=== PATIENT | female | born 1960 | race Caucasian/White ===

== ENCOUNTER 2019-03-30 06:56 | Emergency (ER) | payer SELFPAY ==
[2019-03-30] MEDS ORDERED: Morphine 4 MG/ML VIAL ONE (07:49)
[2019-03-30] MEDS ORDERED: Ondansetron ODT 4 MG TAB ONE (07:50)
[2019-03-30 07:58] LABS: #Eosinphils 0.1 thou/uL (0.0-0.7); #Lymphocytes 1.4 thou/uL (1.20-3.40); #Monocytes 0.4 thou/uL (0.11-0.59); #Neutrophils 3.2 thou/uL (1.40-6.50); %Basophils 0.8 % (0.0-1.0); %Eosinophils 1.6 % (0.0-10.0); %Lymphocytes 27.8 % (21.0-51.0); %Monocytes 7.7 % (0.0-10.0); %Neutrophils 62.1 % (42.0-75.0); Hemoglobin 11.9 g/dL (12.0-16.0); Mean Corpuscular HGB CONC 35.4 g/dL (32.0-36.0); Mean Corpuscular Hemoglobin 31.6 pg (27.0-31.0); Mean Corpuscular Volume 89.3 fL (78.0-98.0); Mean Platelet Volume 6.8 fL (7.4-10.4); Platelet Count 300 thou/uL (130-400); Red Blood Cell (RBC) Count 3.77 mill/uL (4.20-5.40); White Blood Cell (WBC) Count 5.2 thou/uL (4.8-10.8)
[2019-03-30 08:19] LABS: ALT (SGPT) 10 U/L (8-55); AST (SGOT) 14 U/L (5-34); Albumin 4.7 g/dL (3.5-5.0); Alkaline Phosphatase 45 U/L (40-150); Anion Gap 14 mmol/L (10-20); BUN (Urea Nitrogen) 5 mg/dL (9.8-20.1); Bilirubin, Total 0.5 mg/dL (0.2-1.2); Calc. Creatinine Clearance 0 mL/min (70-130); Calcium 9.8 mg/dL (7.8-10.44); Carbon Dioxide 24 mmol/L (22-29); Chloride 104 mmol/L (98-107); Estimated GFR-MDRD 78; Globulin 2.3 g/dL (2.4-3.5); Glucose 109 mg/dL (70-105); Potassium 3.1 mmol/L (3.5-5.1); Sodium 139 mmol/L (136-145)
--- NOTE | 2019-03-30 08:53 | RAD ---
RIGHT KNEE FOUR VIEWS: HISTORY: Pain. FINDINGS: No joint effusion. Joint spaces are preserved. No fracture or malalignment. Well circumscribed oss ific density in the popliteal fossa may represent a loose body versus flabella. IMPRESSION: No fracture or dislocation. No joint effusion. If there is concern for internal derangement, consider MRI. POS: OFF
[2019-03-30 08:54] LABS: Bacteria/HPF None Seen HPF (None Seen); Bilirubin Negative (Negative); Blood, Urine 1+ (Negative); Clarity Clear (Clear); Glucose, Urine (Dipstick) Normal (Negative); Leukocyte Negative Leu/uL (Negative); Nitrite Negative (Negative); Protein, Urine (Dipstick) Negative (Neg-Trace); Squamous Epithelial 0-3 HPF (0-3); Urobilinogen Normal mg/dL (Less than 2); WBC/HPF 0-3 HPF (0-3)
[2019-03-30] MEDS ORDERED: Potassium Chloride 20 MEQ TAB ONE (09:44)
== END 2019-03-30 09:53 | disposition home or self-care (01) ==
LOC: ERS 06:56
DX: M25.561 Pain in right knee (principal); E87.6 Hypokalemia; R53.1 Weakness; Z87.891 Personal history of nicotine dependence; X50.9XXA Other and unspecified overexertion or strenuous movements or postures, initial encounter
CPT/HCPCS: 36415; 80053; 81003; 81015; 84443; 85025; 93005; 96361; 96374; J2270; Q0162

== ENCOUNTER 2019-03-31 16:07 | Emergency (ER) | payer SELFPAY ==
[~2019-03-31 16:07] MED LIST: ISOVUE-370 76%-LOCM 1 ML ONE
[2019-03-31 16:38] LABS: #Basophils 0.1 thou/uL (0.0-0.2); #Eosinphils 0.1 thou/uL (0.0-0.7); #Lymphocytes 1.9 thou/uL (1.20-3.40); #Monocytes 0.5 thou/uL (0.11-0.59); #Neutrophils 4.3 thou/uL (1.40-6.50); %Eosinophils 1.4 % (0.0-10.0); %Lymphocytes 27.9 % (21.0-51.0); %Monocytes 7.4 % (0.0-10.0); %Neutrophils 62.3 % (42.0-75.0); Hemoglobin 12.4 g/dL (12.0-16.0); Mean Corpuscular HGB CONC 35.6 g/dL (32.0-36.0); Mean Corpuscular Hemoglobin 31.7 pg (27.0-31.0); Mean Platelet Volume 7.1 fL (7.4-10.4); Platelet Count 306 thou/uL (130-400); RBC Distribution Width 11.1 % (11.5-14.5); Red Blood Cell (RBC) Count 3.93 mill/uL (4.20-5.40); White Blood Cell (WBC) Count 6.9 thou/uL (4.8-10.8)
[2019-03-31 17:00] LABS: ALT (SGPT) 9 U/L (8-55); AST (SGOT) 12 U/L (5-34); Alkaline Phosphatase 51 U/L (40-150); Anion Gap 15 mmol/L (10-20); BUN (Urea Nitrogen) 4 mg/dL (9.8-20.1); Bilirubin, Total 0.4 mg/dL (0.2-1.2); Calc. Creatinine Clearance 0 mL/min (70-130); Calcium 10.1 mg/dL (7.8-10.44); Carbon Dioxide 24 mmol/L (22-29); Chloride 103 mmol/L (98-107); Estimated GFR-MDRD 78; Globulin 2.3 g/dL (2.4-3.5); Glucose 111 mg/dL (70-105); Magnesium 1.8 mg/dL (1.6-2.6); Potassium 3.6 mmol/L (3.5-5.1); Protein, Total 7.3 g/dL (6.0-8.3); Sodium 138 mmol/L (136-145)
--- NOTE | 2019-03-31 18:19 | ULT ---
ULTRASOUND DOPPLER DUPLEX VENOUS RIGHT LOWER EXTREMITY: DATE: 03/31/2019 HISTORY: 58-year-old female with right lower extremity pain TECHNIQUE: Grayscale, color-flow, and spectral analysis, of major veins of right lower extremity. FINDINGS: There is demonstration of blood flow with normal compressibility, of the right common femoral, profun da femoral, greater saphenous, femoral, popliteal, and posterior tibial, veins. IMPRESSION: Negative. No deep venous thrombosis of right lower extremity.
--- NOTE | 2019-03-31 18:42 | CT ---
CT ARTERIOGRAM CHEST WITH IV CONTRAST AND 3D IMAGIN03/31/19 HISTORY: Dyspnea. Palpitations. FINDINGS: There is good contrast opacification of the pulmonary arteries and thoracic aorta with normal origin of the great vessels at the aortic arch. No pleural fluid, pneumothorax, or mediastinal adenopathy. N onspecific mediastinal lymph nodes. Lungs are hyperinflated. IMPRESSION: No CT evidence of pulmonary embolus. Emphysema. POS: BST
== END 2019-03-31 19:24 | disposition home or self-care (01) ==
LOC: ERS 16:07
DX: I49.3 Ventricular premature depolarization (principal); Z87.891 Personal history of nicotine dependence
CPT/HCPCS: 36415; 71275; 80053; 83735; 84443; 84484; 85025; 93005; 96360; 96361; Q9966

== ENCOUNTER 2019-04-05 02:01 | Observation (INO) | payer BC, SELFPAY ==
[2019-04-05 02:37] LABS: #Basophils 0.1 thou/uL (0.0-0.2); #Eosinphils 0.1 thou/uL (0.0-0.7); #Lymphocytes 1.4 thou/uL (1.20-3.40); #Monocytes 0.7 thou/uL (0.11-0.59); #Neutrophils 7.7 thou/uL (1.40-6.50); %Basophils 0.6 % (0.0-1.0); %Eosinophils 1.3 % (0.0-10.0); %Lymphocytes 13.9 % (21.0-51.0); %Monocytes 7.3 % (0.0-10.0); %Neutrophils 76.8 % (42.0-75.0); Hemoglobin 11.7 g/dL (12.0-16.0); Mean Corpuscular HGB CONC 35.1 g/dL (32.0-36.0); Mean Corpuscular Hemoglobin 31.4 pg (27.0-31.0); Mean Corpuscular Volume 89.4 fL (78.0-98.0); Mean Platelet Volume 7.5 fL (7.4-10.4); Platelet Count 289 thou/uL (130-400); Red Blood Cell (RBC) Count 3.73 mill/uL (4.20-5.40)
[2019-04-05 02:57] LABS: ALT (SGPT) 11 U/L (8-55); AST (SGOT) 13 U/L (5-34); Albumin 4.5 g/dL (3.5-5.0); Alkaline Phosphatase 44 U/L (40-150); Anion Gap 16 mmol/L (10-20); BUN (Urea Nitrogen) 9 mg/dL (9.8-20.1); Bilirubin, Total 0.4 mg/dL (0.2-1.2); Calc. Creatinine Clearance 0 mL/min (70-130); Calcium 9.2 mg/dL (7.8-10.44); Carbon Dioxide 20 mmol/L (22-29); Chloride 104 mmol/L (98-107); Estimated GFR-MDRD 80; Globulin 2.1 g/dL (2.4-3.5); Glucose 111 mg/dL (70-105); Lipase 7 U/L (8-78); Potassium 3.3 mmol/L (3.5-5.1); Protein, Total 6.6 g/dL (6.0-8.3); Sodium 137 mmol/L (136-145)
[2019-04-05] MEDS ORDERED: Ondansetron PF 4 MG/2 ML Vial ONE ×3 (02:57→07:11)
[2019-04-05 03:30] LABS: Pregnancy Test - Urine (BHCG) Negative (Negative); Pregu Control Background? CLEAR/WHITE (CLR/WHITE); Pregu Control Bar Appear? YES (CONTROL BAR)
[2019-04-05 03:32] LABS: Bacteria/HPF 1+ HPF (None Seen); Bilirubin Negative (Negative); Blood, Urine 1+ (Negative); Clarity Clear (Clear); Glucose, Urine (Dipstick) Normal (Negative); Leukocyte Negative Leu/uL (Negative); Nitrite Negative (Negative); Protein, Urine (Dipstick) Negative (Neg-Trace); RBC/HPF 0-3 HPF (0-3); Specific Gravity 1.009 (1.002-1.036); Squamous Epithelial 0-3 HPF (0-3); Urobilinogen Normal mg/dL (Less than 2); WBC/HPF 0-3 HPF (0-3)
[2019-04-05] MEDS ORDERED: Magnesium Citrate 300 ML BOT ONE (06:25)
[2019-04-05] MEDS ORDERED: Ondansetron ODT 4 MG TAB PO PRN (08:05)
[2019-04-05] MEDS ORDERED: Ondansetron PF 4 MG/2 ML Vial IVP PRN (08:05)
[2019-04-05] MEDS ORDERED: Bisacodyl 5 MG TAB PO PRN (08:05)
[2019-04-05] MEDS ORDERED: Bisacodyl 10 MG SUPP PR PRN (08:05)
[2019-04-05] MEDS ORDERED: hydrALAZINE 20 MG/ML VIAL SLOW IVP PRN (08:08)
[2019-04-05] MEDS ORDERED: diphenhydrAMINE 25 MG CAP PO PRN (08:08)
[2019-04-05] MEDS ORDERED: Promethazine HCl 12.5 MG in Sodium Chloride 0.9% 50 ML IVPB SCH (08:15)
[2019-04-05] MEDS: Famotidine 20 MG TAB PO SCH ×2 (08:34→20:51)
[2019-04-05] MEDS: Acetaminophen 325 MG TAB PO PRN ×2 (08:34→21:00)
[2019-04-05] MEDS: Senokot S 8.6-50 MG TAB PO SCH ×2 (08:35→20:52)
[2019-04-05 08:54] VITALS: BMI 22.6
[2019-04-05] MEDS ORDERED: Fleet Enema 133 ML BOT PR PRN (09:03)
--- NOTE | 2019-04-05 09:04 | CT ---
PRELIMINARY REPORT/[facility]/EMERGENCY AFTER HOURS PROCEDURE: EXAM: CT Abdomen and Pelvis With Contrast EXAM DATE/TIME: 04/05/2019 5:13 AM CLINICAL HISTORY: 58 years old, female; Abdominal pain; Acute; Patient HX: 58f with C/O abd pain for the last two weeks and constipation for that same period of time states that she has used two enemas today with no reli ef. PT reports using an enema this evening and states that she was sitting on the commode and still could not have a bm. PT reports severe nausea and states that when her came in to check on her he found her diaphoretic and lying on the floor. PT reports weakness and states she can barel y stand. PT has been seen here 4 other times in the last 9 days. PT was seen twice for palpitations, once for anxiety, and once for left knee pain. PT states she does not have a pmd as ins urance did nto go into effect until 04/04/19. First available appt would not be until the end of this week. TECHNIQUE: Imaging protocol: Computed tomography of the abdomen and pelvis with intravenous contrast. COMPARISON: No relevant prior studies available. FINDINGS: Liver: Unremarkable. Gallbladder and bile ducts: Unremarkable. Pancreas: Unremarkable. Spleen: Nonspecific subcentimeter low-attenuation splenic lesion. Adrenals: Unremarkable. Kidneys and ureters: Unremarkable. Stomach and bowel: Moderate amount of colonic stool with intermixed fluid distally. Fluid in the rect osigmoid colon with mild apparent mucosal thickening and hyperenhancement. No obvious surrounding inf lammatory changes. Unremarkable small bowel. Appendix: No evidence of appendicitis. Intraperitoneal space: No free air. No significant fluid collection. Vasculature: Unremarkable. Lymph nodes: No enlarged lymph nodes. Bladder: Unremarkable. Reproductive: Unremarkable. Bones/joints: Unremarkable. No acute fracture. Soft tissues: Minimal fat containing periumbilical hernia. IMPRESSION: Rectosigmoid fluid content and apparent mucosal prominence suspicious for colitis. Moderate colonic stool proximally. Thank you for allowing us to participate in the care of your patient. Dictated and Authenticated by: Simón Siegel MD 04/05/2019 5:35 AM Central Time ([place] & [place]) FINAL REPORT ABDOMEN AND PELVIC CT SCAN WITH IV CONTRAST: EMERGENCY AFTER HOURS EXAM TIME: 5:15 a.m. DATE: 04/05/2019. Minimal colonic wall thickening in the rectosigmoid region of the colon with some associated fluid, n onspecific but raising concern for the possibility of colitis. No CT evidence for acute appendicitis . Paraumbilical fat-containing hernia. POS: HEMANTH
--- NOTE | 2019-04-05 09:28 | RAD ---
ABDOMEN 2 VIEWS: HISTORY: Constipation. FINDINGS: Moderate solid fecal material in the right transverse colon. No large or small bowel obstruction. N o free intraperitoneal air. No overt calculus. IMPRESSION: Unremarkable abdomen 2 views. POS: HEMANTH
[2019-04-05] MEDS ORDERED: ISOVUE-370 76%-LOCM 1 ML ONE (13:10)
--- NOTE | 2019-04-05 14:23 | PDOC.HHP ---
Hospitalist HPI - History of Present Illness Abdominal pain History of Present Illness: 58 year old female presents for worsening abdominal pain and near syncope. Patient with worsening constipation over the past few weeks. Patient has tried eating salads, stool softeners, suppositories, and enemas without much help. Patient was straining to move her bowels and had near syncopal event where she had to call to help her out of the restroom because she almost couldn't make it. Patient tells me that she doesnt think she completely lost consciousness though she was hot and sweaty and felt like she was going to pass out. No tongue biting. No spastic type moments. No chest pain or shortness of breath. Patient found to have colitis on CT of the abdomen. Admitted to medical unit with telemetry for further evaluation. Hospitalist ROS - Review of Systems Constitutional: reports: fever (Subjective), chills, sweats, weakness, malaise Eyes: denies: pain, vision change, redness ENT: denies: ear pain, ear discharge, throat pain Respiratory: denies: cough, shortness of breath, hemoptysis Cardiovascular: denies: chest pain, palpitations, orthopnea Gastrointestinal: reports: abdominal pain, constipation. denies: nausea, vomitting, diarrhea, melena, hematochezia Genitourinary: denies: dysuria, frequency Musculoskeletal: reports: neck pain, back pain Skin: denies: rash, lesions Neurological: reports: weakness (Generalized), confusion - Medication Medications: Active Medications Generic Name Dose Route Start Last Admin Trade Name Freq PRN Reason Stop Dose Admin Acetaminophen 650 mg 04/05/19 08:05 04/05/19 08:34 Tylenol PO 650 mg Q4H PRN Administration Pain Famotidine 20 mg 04/05/19 09:00 04/05/19 08:34 Pepcid PO 20 mg BID ANTHONY Administration Levofloxacin 500 mg/ Device 100 mls @ 100 mls/hr 04/05/19 10:00 04/05/19 11: 37 IVPB 100 mls Q24HR ANTHONY Administration Senna/Docusate Sodium 2 tab 04/05/19 09:00 04/05/19 08:35 Senokot S PO 2 tab BID ANTHONY Administration Hospitalist History - Past Medical History Cardiac: denies: AFIB, CAD, CHF, HTN, MD Pulmonary: denies: CVA/TIA/stroke, COPD PHY THERAPIST: denies: CVA Gastrointestinal: denies: GI bleed, Inflam bowel disease Heme/Onc: denies: Hemochromatosis, Sickle cell disease Hepatobiliary: denies: Cirrhosis Psych: denies: Psychosis, Schizophrenia Musculoskeletal: reports: Chronic low back pain. denies: Bursitis Rheumatologic: denies: Rheumatoid arthritis Infectious Disease: denies: HIV Renal/: denies: Chronic renal failure Endocrine: denies: Hypothyroidism, Osteopenia - Past Surgical History Past Surgical History: denies: CABG, Cataract Removal - Family History Family History: denies: diabetes mellitus, gastrointestinal disorder - Social History Smoking Status: Former smoker Alcohol: reports: Rare Drugs: reports: none Living Situation: With Family - Exam General Appearance: ill appearing Eye: PERRL Eye - other findings: EOMI ENT: no oropharyngeal lesions, dry oral mucosa Neck: supple, symmetric, no JVD Heart: RRR, no murmur, no gallops, no rubs Respiratory: CTAB, no wheezes, no rales, no ronchi, normal chest expansion Gastrointestinal: soft, non-distended, normal bowel sounds, no palpable masses, tender to palpation Gastrointestinal - other findings: Significant stool burden Extremities: no edema Skin: no rashes Neurological: CN's grossly intact, no weakness, no focal deficits Musculoskeletal: normal strength Psychiatric: normal affect, A&O x 3 Hospitalist Results - Labs Result Diagrams: 04/05/19 02:29 04/05/19 02:29 Lab results: WBC 10.0 thou/uL (4.8-10.8) 04/05/19 02:29 Hgb 11.7 g/dL (12.0-16.0) L 04/05/19 02:29 Hct 33.4 % (36.0-47.0) L 04/05/19 02:29 MCV 89.4 fL (78.0-98.0) 04/05/19 02:29 Plt Count 289 thou/uL (130-400) 04/05/19 02:29 Neutrophils % 76.8 % (42.0-75.0) H 04/05/19 02:29 Sodium 137 mmol/L (136-145) 04/05/19 02:29 Potassium 3.3 mmol/L (3.5-5.1) L 04/05/19 02:29 Chloride 104 mmol/L (98-107) 04/05/19 02:29 Carbon Dioxide 20 mmol/L (22-29) L 04/05/19 02:29 BUN 9 mg/dL (9.8-20.1) L 04/05/19 02:29 Creatinine 0.75 mg/dL (0.6-1.1) 04/05/19 02:29 Glucose 111 mg/dL (70-105) H 04/05/19 02:29 Calcium 9.2 mg/dL (7.8-10.44) 04/05/19 02:29 Total Bilirubin 0.4 mg/dL (0.2-1.2) 04/05/19 02:29 AST 13 U/L (5-34) 04/05/19 02:29 ALT 11 U/L (8-55) 04/05/19 02:29 Alkaline Phosphatase 44 U/L (40-150) 04/05/19 02:29 Serum Total Protein 6.6 g/dL (6.0-8.3) 04/05/19 02:29 Albumin 4.5 g/dL (3.5-5.0) 04/05/19 02:29 Lipase 7 U/L (8-78) L 04/05/19 02:29 Urine Ketones Trace mg/dL (Negative) A 04/05/19 03:15 Urine Blood 1+ (Negative) A 04/05/19 03:15 Urine Nitrite Negative (Negative) 04/05/19 03:15 Ur Leukocyte Esterase Negative Ana/uL (Negative) 04/05/19 03:15 Urine RBC 0-3 HPF (0-3) 04/05/19 03:15 Urine WBC 0-3 HPF (0-3) 04/05/19 03:15 Ur Squamous Epith Cells 0-3 HPF (0-3) 04/05/19 03:15 Urine Bacteria 1+ HPF (None Seen) 04/05/19 03:15 - Radiology Interpretation CT scan - abdomen Status: image reviewed by tx Hospitalist H&P A/P - Problem (1) Colitis Code(s): K52.9 - NONINFECTIVE GASTROENTERITIS AND COLITIS, UNSPECIFIED Status : Acute (2) Abdominal pain Code(s): R10.9 - UNSPECIFIED ABDOMINAL PAIN Status: Acute (3) Constipation Code(s): K59.00 - CONSTIPATION, UNSPECIFIED Status: Acute (4) Fever Code(s): R50.9 - FEVER, UNSPECIFIED Status: Acute (5) Near syncope Status: Acute (6) Former tobacco use Code(s): Z87.891 - PERSONAL HISTORY OF NICOTINE DEPENDENCE Status: Acute - Plan Plan: Plan: Admit to medical unit with telemetry CT abdomen noted Start Metronidazole and Levaquin for gut coverage of colitis PRN medications for constipation If patient doesnt respond to antibiotics would consider GI consult If patient clinically improved would anticipate D/c in the next 24-48 hours observation status Pain control Medications for indigestion Metabolic work up is benign GI and DVT PPX
[2019-04-05] MEDS: metroNIDAZOLE 500 MG in Premix Bag 1 BAG IVPB SCH ×2 (15:22→22:25)
[2019-04-05 18:52] LABS: Amphetamine Not Detected (NotDetected); Barbiturates Screen Not Detected (NotDetected); Benzodiazepine Screen Not Detected (NotDetected); Cocaine Metabolite Screen Not Detected (NotDetected); Medtox Control Line Valid? VALID (VALID); Medtox Reader # READER 4; Methadone Not Detected (NotDetected); Methamphetamine Not Detected (NotDetected); Opiate Screen Not Detected (NotDetected); Oxycodone Screen Not Detected (NotDetected); Phencyclidine (PCP) Not Detected (NotDetected); THC/Cannabinoid Screen Detected (NotDetected); Tricyclic Screen Not Detected (NotDetected)
[2019-04-05] MEDS: traMADol HCl 50 MG TAB PO PRN (19:22)
[2019-04-05] MEDS: Promethazine 25 MG TAB PO PRN (20:51)
[2019-04-06] MEDS: metroNIDAZOLE 500 MG in Premix Bag 1 BAG IVPB SCH (06:15)
[2019-04-06] MEDS: Promethazine 25 MG TAB PO PRN ×2 (06:22→12:20)
[2019-04-06 06:23] LABS: #Eosinphils 0.3 thou/uL (0.0-0.7); #Lymphocytes 1.8 thou/uL (1.20-3.40); #Monocytes 0.6 thou/uL (0.11-0.59); #Neutrophils 2.6 thou/uL (1.40-6.50); %Basophils 0.9 % (0.0-1.0); %Eosinophils 5.1 % (0.0-10.0); %Lymphocytes 33.4 % (21.0-51.0); %Monocytes 11.1 % (0.0-10.0); %Neutrophils 49.6 % (42.0-75.0); Hemoglobin 10.8 g/dL (12.0-16.0); Mean Corpuscular HGB CONC 35.1 g/dL (32.0-36.0); Mean Corpuscular Hemoglobin 31.9 pg (27.0-31.0); Mean Corpuscular Volume 90.9 fL (78.0-98.0); Mean Platelet Volume 7.5 fL (7.4-10.4); Platelet Count 236 thou/uL (130-400); RBC Distribution Width 11.2 % (11.5-14.5); Red Blood Cell (RBC) Count 3.39 mill/uL (4.20-5.40); White Blood Cell (WBC) Count 5.3 thou/uL (4.8-10.8)
[2019-04-06 06:32] LABS: Anion Gap 10 mmol/L (10-20); BUN (Urea Nitrogen) 8 mg/dL (9.8-20.1); Calc. Creatinine Clearance 80 mL/min (70-130); Calcium 9.1 mg/dL (7.8-10.44); Carbon Dioxide 27 mmol/L (22-29); Chloride 105 mmol/L (98-107); Estimated GFR-MDRD 75; Glucose 100 mg/dL (70-105); Potassium 3.7 mmol/L (3.5-5.1); Sodium 138 mmol/L (136-145)
[2019-04-06 07:52] VITALS: BP 136/65; TEMP 98.8
[2019-04-06] MEDS: Senokot S 8.6-50 MG TAB PO SCH (10:24)
[2019-04-06] MEDS: Famotidine 20 MG TAB PO SCH (10:29)
[2019-04-06] MEDS: Acetaminophen 325 MG TAB PO PRN (10:29)
[2019-04-06] MEDS: traMADol HCl 50 MG TAB PO PRN (12:20)
--- NOTE | 2019-04-07 05:30 | DIS ---
DATE OF ADMISSION: 04/05/2019 DATE OF DISCHARGE: 04/06/2019 DISCHARGE DIAGNOSES: 1. Abdominal pain. 2. Acute colitis. 3. Constipation. 4. Osteoarthritis. 5. Indigestion. 6. Nausea, vomiting. REASON FOR HOSPITALIZATION: Acute colitis. SIGNIFICANT FINDINGS: The patient had a CT scan of the abdomen, please see full report for details, the patient confirmed to have acute colitis on CT scan. PROCEDURES PERFORMED/TREATMENTS RENDERED: The patient was admitted to medical unit with telemetry for close monitoring, placed on IV antibiotics, symptomatic medications for bowel function and nausea, and IV fluid resuscitation. CONDITION ON DISCHARGE: Stable. SPECIFIC INSTRUCTIONS FOR PATIENT/FAMILY: 1. The patient is to follow up with primary care physician this Friday at her appointment. 2. The patient is recommended to complete oral antibiotics for resolution of colitis. 3. The patient is recommended to take all medications as outlined, to be re-evaluated by primary care physician. 4. The patient is recommended to follow up with primary care physician for all future needs. HOSPITAL COURSE: Ms. Winkler is a pleasant 58-year-old white female, who presents to [facility] on 04/05/2019, with abdominal pain. The patient was found to have colitis on CT scan of the abdomen, please see full report for details. The patient was given IV fluid resuscitation, IV antibiotics, pain control, and symptomatic therapies for the bowel, which caused her symptoms to resolve. The patient tolerating diet. The patient moving bowels. The patient no longer having nausea or vomiting. The patient recommended to complete a full course of oral antibiotics. The patient afebrile. The patient with normal WBC count. The patient ambulating without assistance. The patient was recommended safe for discharge with close followup in the outpatient setting. The patient recommended to complete a full course of oral antibiotics for resolution of symptoms. The patient is recommended to follow up with primary care physician at her upcoming appointment this Friday. The patient is recommended to have colonoscopy in the next 6 to 8 weeks as she has never had a colonoscopy in the past, being 58 years old, she is due for a colonoscopy. The patient is recommended to return to [facility] immediately if signs or symptoms return, worsen, or any other new symptoms occur. This complete discharge process and planning/coordinating care for the patient took greater than 36 minutes, with more than 50% of that time being spent in the patient's room with [id number] interaction. Job ID: [id number]
== END 2019-04-06 12:45 | disposition home or self-care (01) ==
LOC: ERS 02:01 → 2SW 06:39
PROVIDERS: ADMIT Internal Medicine; ATTEND Internal Medicine
DX: K52.9 Noninfective gastroenteritis and colitis, unspecified (principal); K59.00 Constipation, unspecified; R55 Syncope and collapse; R50.9 Fever, unspecified; M19.90 Unspecified osteoarthritis, unspecified site; Z87.891 Personal history of nicotine dependence
CPT/HCPCS: 36415; 74019; 74177; 80048; 80053; 80306; 81003; 81015; 81025; 83690; 85025; 93005; 96365; 96366; 96367; 96374; 96375; 96376; G0378; J1956; J2405; J2550; Q0162; Q0169; Q9966

== ENCOUNTER 2019-05-14 07:44 | Emergency (ER) | payer BC ==
[2019-05-14] MEDS ORDERED: Lorazepam 2 MG/ML VIAL ONE (08:18)
[2019-05-14] MEDS ORDERED: Ondansetron PF 4 MG/2 ML Vial ONE (08:18)
[2019-05-14 08:22] LABS: #Eosinphils 0.1 thou/uL (0.0-0.7); #Lymphocytes 1.8 thou/uL (1.20-3.40); #Monocytes 0.8 thou/uL (0.11-0.59); #Neutrophils 5.3 thou/uL (1.40-6.50); %Basophils 0.5 % (0.0-1.0); %Eosinophils 1.5 % (0.0-10.0); %Lymphocytes 22.1 % (21.0-51.0); %Monocytes 9.7 % (0.0-10.0); %Neutrophils 66.2 % (42.0-75.0); Hemoglobin 13.2 g/dL (12.0-16.0); Mean Corpuscular HGB CONC 34.8 g/dL (32.0-36.0); Mean Corpuscular Hemoglobin 31.3 pg (27.0-31.0); Mean Corpuscular Volume 90.2 fL (78.0-98.0); Platelet Count 328 thou/uL (130-400); RBC Distribution Width 11.4 % (11.5-14.5); Red Blood Cell (RBC) Count 4.22 mill/uL (4.20-5.40)
--- NOTE | 2019-05-14 08:35 | RAD ---
RADIOGRAPH CHEST 1 VIEW: DATE: 05/14/2019 HISTORY: 58-year-old female with chest pain FINDINGS: There are no airspace densities, pulmonary edema, pneumothorax, or cardiomegaly. The lateral costophr enic angles are sharp. IMPRESSION: No acute cardiopulmonary findings.
[2019-05-14 08:46] LABS: ALT (SGPT) 20 U/L (8-55); AST (SGOT) 17 U/L (5-34); Alkaline Phosphatase 61 U/L (40-110); Anion Gap 14 mmol/L (10-20); BUN (Urea Nitrogen) 9 mg/dL (9.8-20.1); Bilirubin, Total 0.5 mg/dL (0.2-1.2); Calc. Creatinine Clearance 0 mL/min (70-130); Calcium 10.3 mg/dL (7.8-10.44); Carbon Dioxide 23 mmol/L (22-29); Chloride 99 mmol/L (98-107); Estimated GFR-MDRD 76; Globulin 2.8 g/dL (2.4-3.5); Glucose 124 mg/dL (70-105); Potassium 4.3 mmol/L (3.5-5.1); Protein, Total 7.8 g/dL (6.0-8.3); Sodium 132 mmol/L (136-145)
[2019-05-14 09:14] LABS: Bilirubin Negative (Negative); Blood, Urine 1+ (Negative); Clarity Clear (Clear); Glucose, Urine (Dipstick) Normal (Negative); Leukocyte Negative Leu/uL (Negative); Nitrite Negative (Negative); Protein, Urine (Dipstick) 30 mg/dL (Neg-Trace); Urobilinogen Normal mg/dL (Less than 2)
[2019-05-14 09:22] LABS: Bacteria/HPF 1+ HPF (None Seen); Squamous Epithelial 0-3 HPF (0-3); WBC/HPF None Seen HPF (0-3)
--- NOTE | 2019-05-14 09:24 | CT ---
CT OF HEAD NONCONTRAST: INDICATION: Anxiety. FINDINGS: There is no evidence of ventriculomegaly, mass effect, midline shift, or acute intracranial hemorrhag e. There are scattered areas of mild white matter hypoattenuation suggestive of mild chronic ischemi c disease. Mild mucosal thickening of the paranasal sinuses. IMPRESSION: No acute intracranial hemorrhage or mass effect. POS: C
== END 2019-05-14 10:28 | disposition home or self-care (01) ==
LOC: ERS 07:44
DX: F41.9 Anxiety disorder, unspecified (principal); Z87.891 Personal history of nicotine dependence; Z79.899 Other long term (current) drug therapy
CPT/HCPCS: 36415; 70450; 71045; 80053; 81003; 81015; 84484; 85025; 93005; 96361; 96374; 96375; J2060; J2405

== ENCOUNTER 2019-06-11 09:01 | Outpatient (CLI) | payer BC ==
--- NOTE | 2019-06-11 10:12 | CT ---
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 FINDINGS: The glottis is closed during the scan, limiting the evaluation of the larynx. No obvious, large laryn geal tumor mass is visualized. No cervical lymphadenopathy identified. No major pathology identified involving carotid, parapharyngeal, parotid, submandibular, supervisor backfilling, retropharyngeal, pe rivertebral, and posterior cervical, spaces. Nonspecific mild diffuse heterogeneity of thyroid parenchyma. Cervical trachea is patent and clear. No destructive osseous lesion identified. IMPRESSION: 1. Evaluation of the larynx is limited by closed glottis during scan. 2. Nonspecific heterogeneous thyroid parenchyma. 3. Otherwise negative.
[2019-06-11] MEDS ORDERED: Iopamidol 370 76% 100 ML VIAL ONE (16:19)
== END 2019-06-11 09:02 | disposition home or self-care (01) ==
LOC: CT 09:01
PROVIDERS: ATTEND Radiology Radiation Oncology
DX: C32.1 Malignant neoplasm of supraglottis (principal)
CPT/HCPCS: 70491; Q9967

== ENCOUNTER 2019-09-01 14:06 | Outpatient (CLI) | payer BC ==
[~2019-09-01 14:06] MED LIST changes: -ISOVUE-370 76%-LOCM 1 ML ONE; +Iopamidol 370 76% 100 ML VIAL ONE
--- NOTE | 2019-09-01 14:56 | CT ---
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 FINDINGS: On the previous scan, the patient's glottis was closed, making evaluation of the larynx difficult. On the current CT, the glottis is not closed. Previously, there was asymmetry in the sizes of the air -filled piriform sinuses, right side significantly more dilated than the left. On the current CT, there is still asymmetry, with the right side air-filled piriform sinus less dilated than before, and the left side almost completely effaced. Other than this asymmetry, no mass is identified involving the larynx. There has been no other interval change. No cervical lymphadenopathy. No abnormality identified involving the submandibular, parotid, parapharyngeal, truck loader and unloader, sublingua l, retropharyngeal, and posterior cervical, spaces. The thyroid gland is diffusely somewhat large, right lobe asymmetrically larger than left. There is also a heterogeneously enhancing nodule on the r ight side of the thyroid isthmus. Trachea is normal. Lung apices are grossly clear. No destructive osseous lesion. No significant post radiation changes of the soft tissues. IMPRESSION: 1. Asymmetry in the hypopharynx: Left piriform sinus is effaced. This is nonspecific. 2. Nonspecific Findings involving the thyroid gland are unchanged. 3. Otherwise negative.
== END 2019-09-01 14:07 | disposition home or self-care (01) ==
LOC: BICCT 14:06
PROVIDERS: ATTEND Family Medicine
DX: C32.9 Malignant neoplasm of larynx, unspecified (principal); J39.2 Other diseases of pharynx
CPT/HCPCS: 70491; Q9967

== ENCOUNTER 2019-09-09 12:27 | Outpatient (CLI) | payer BC ==
--- NOTE | 2019-09-09 14:52 | ULT ---
THYROID ULTRASOUND: Date: 09/09/2019 HISTORY: Thyromegaly. COMPARISON: CT neck performed 09/01/2019. FINDINGS: Real-time imaging of the gland shows the right lobe to measures 2.6 x 2.3 x 5.6 cm. The left lobe angela sures 1.7 x 2.0 x 4.6 cm. The gland is diffusely heterogeneous. There is a hyperechoic 6.0 mm nodule in the mid pole region of the right lobe and a subtly hyperechoic 9.0 mm nodule which appears solid, wider than tall, with ill-defined margins. This would correspond to a TI-RADS 3 lesion, for which fol low-up is only recommended at greater than 1.5 cm in size. IMPRESSION: Somewhat prominent heterogeneous appearing gland with small thyroid nodules. POS: HEMANTH
== END 2019-09-09 12:28 | disposition home or self-care (01) ==
LOC: BICULT 12:27
PROVIDERS: ATTEND Family Medicine
DX: E01.0 Iodine-deficiency related diffuse (endemic) goiter (principal); E04.2 Nontoxic multinodular goiter
CPT/HCPCS: 76536

== ENCOUNTER 2019-09-27 07:46 | Emergency (ER) | payer BC ==
--- NOTE | 2019-09-27 08:38 | RAD ---
RADIOGRAPH CHEST 2 VIEW: DATE: 09/27/2019 HISTORY: 59-year-old female with cough and fever FINDINGS: There is hyperinflation of the lungs, consistent with COPD. There is no evidence of airspace density, pulmonary edema, cardiomegaly, pleural effusion, or pneumothorax. IMPRESSION: 1) No acute cardiopulmonary findings. 2) emphysema.
[2019-09-27 08:45] LABS: #Basophils 0.1 thou/uL (0.0-0.2); #Eosinphils 0.2 thou/uL (0.0-0.7); #Lymphocytes 1.6 thou/uL (1.20-3.40); #Neutrophils 6.8 thou/uL (1.40-6.50); %Basophils 0.6 % (0.0-1.0); %Eosinophils 2.3 % (0.0-10.0); %Monocytes 9.9 % (0.0-10.0); %Neutrophils 70.3 % (42.0-75.0); Hemoglobin 10.5 g/dL (12.0-16.0); Mean Corpuscular HGB CONC 35.9 g/dL (32.0-36.0); Mean Corpuscular Hemoglobin 31.7 pg (27.0-31.0); Mean Corpuscular Volume 88.4 fL (78.0-98.0); Mean Platelet Volume 6.9 fL (7.4-10.4); Platelet Count 294 thou/uL (130-400); RBC Distribution Width 11.2 % (11.5-14.5); Red Blood Cell (RBC) Count 3.32 mill/uL (4.20-5.40); White Blood Cell (WBC) Count 9.7 thou/uL (4.8-10.8)
[2019-09-27] MEDS ORDERED: Ketorolac Tromethamine 30 MG/ML VIAL ONE (08:53)
[2019-09-27] MEDS ORDERED: Ondansetron PF 4 MG/2 ML Vial ONE (08:53)
[2019-09-27 09:01] LABS: Bilirubin Negative (Negative); Blood, Urine Trace (Negative); Clarity Clear (Clear); Glucose, Urine (Dipstick) Normal (Negative); Leukocyte Negative Leu/uL (Negative); Nitrite Negative (Negative); Protein, Urine (Dipstick) Negative (Neg-Trace); RBC/HPF 0-3 HPF (0-3); Squamous Epithelial None Seen HPF (0-3); Urobilinogen Normal mg/dL (Less than 2); WBC/HPF 0-3 HPF (0-3)
[2019-09-27 09:10] LABS: Bacteria/HPF Rare-Few HPF (None Seen)
[2019-09-27 09:17] LABS: ALT (SGPT) 26 U/L (8-55); AST (SGOT) 61 U/L (5-34); Albumin 4.3 g/dL (3.5-5.0); Alkaline Phosphatase 67 U/L (40-110); Anion Gap 13 mmol/L (10-20); BUN (Urea Nitrogen) 4 mg/dL (9.8-20.1); Bilirubin, Total 0.3 mg/dL (0.2-1.2); Calc. Creatinine Clearance 0 mL/min (70-130); Calcium 9.3 mg/dL (7.8-10.44); Carbon Dioxide 28 mmol/L (22-29); Chloride 102 mmol/L (98-107); Estimated GFR-MDRD 67; Globulin 2.9 g/dL (2.4-3.5); Glucose 96 mg/dL (70-105); Potassium 3.1 mmol/L (3.5-5.1); Protein, Total 7.2 g/dL (6.0-8.3); Sodium 140 mmol/L (136-145)
[2019-09-27] MEDS ORDERED: predniSONE 20 MG TAB ONE (10:46)
[2019-09-27] MEDS ORDERED: Azithromycin 250 MG TAB ONE (10:46)
[2019-09-27] MEDS ORDERED: Potassium Chloride 20 MEQ TAB ONE (10:46)
== END 2019-09-27 10:45 | disposition home or self-care (01) ==
LOC: ERS 07:46
DX: J44.1 Chronic obstructive pulmonary disease with (acute) exacerbation (principal); I10 Essential (primary) hypertension; E87.6 Hypokalemia; B34.9 Viral infection, unspecified; Z87.891 Personal history of nicotine dependence; Z79.899 Other long term (current) drug therapy
CPT/HCPCS: 36415; 71046; 80053; 81003; 81015; 85025; 87804; 94760; 96361; 96374; 96375; J1885; J2405; J7512

== ENCOUNTER 2023-04-12 11:48 | Inpatient (IN) | payer OTHER, SELFPAY ==
[2023-04-12] MEDS ORDERED: Morphine 4 MG/ML VIAL ONE ×2 (12:12→12:15)
[2023-04-12] MEDS ORDERED: Ondansetron PF 4 MG/2 ML Vial ONE ×2 (12:13→12:15)
[2023-04-12 12:51] LABS: #Eosinphils 0.1 thou/uL (0.0-0.7); #Monocytes 0.6 thou/uL (0.11-0.59); #Neutrophils 3.4 thou/uL (1.40-6.50); %Basophils 0.6 % (0.0-1.0); %Eosinophils 1.5 % (0.0-10.0); %Monocytes 8.1 % (0.0-10.0); %Neutrophils 49.5 % (42.0-75.0); Hematocrit 36.3 % (36.0-47.0); Mean Corpuscular HGB CONC 33.1 g/dL (32.0-36.0); Mean Corpuscular Volume 87.7 fl (78.0-98.0); Mean Platelet Volume 10.2 fL (7.4-10.4); Platelet Count 349 10x3/uL (130-400); RBC Distribution Width 13.4 % (11.5-14.5); Red Blood Cell (RBC) Count 4.14 mill/uL (4.20-5.40); White Blood Cell (WBC) Count 6.9 10x3/uL (4.8-10.8)
[2023-04-12] MEDS ORDERED: Lidocaine 1% PF 5 ML VIAL ONE (13:18)
[2023-04-12] MEDS ORDERED: fentaNYL 50 mcg/mL 1 mL Vial ONE (13:18)
[2023-04-12 14:01] LABS: ALT (SGPT) 13 U/L (8-55); AST (SGOT) 18 U/L (5-34); Albumin 4.7 g/dL (3.5-5.0); Alkaline Phosphatase 88 U/L (40-110); Anion Gap 12 mmol/L (10-20); BUN (Urea Nitrogen) 9 mg/dL (9.8-20.1); Bilirubin, Total 0.3 mg/dL (0.2-1.2); Calc. Creatinine Clearance 0 mL/min (70-130); Calcium 9.5 mg/dL (7.8-10.44); Carbon Dioxide 25 mmol/L (22-29); Chloride 106 mmol/L (98-107); Estimated GFR 78; Globulin 2.7 g/dL (2.4-3.5); Glucose 141 mg/dL (70-105); Potassium 3.6 mmol/L (3.5-5.1); Protein, Total 7.4 g/dL (6.0-8.3); Sodium 139 mmol/L (136-145)
[2023-04-12] MEDS ORDERED: Ketamine 50 MG/ML (10ML VIAL) ONE (14:17)
[2023-04-12] MEDS ORDERED: Glucagon 1 MG/ML KIT IM PRN (15:42)
[2023-04-12] MEDS ORDERED: hydrALAZINE 20 MG/ML VIAL SLOW IVP PRN (15:42)
[2023-04-12] MEDS ORDERED: TETANUS, DIPHTHERIA TOX,ADULT (TDVAX) 0.5 ML VIAL IM ONE (15:42)
[2023-04-12] MEDS ORDERED: Dextrose 50% Abboject 50 ML SYRINGE SLOW IVP PRN (15:42)
[2023-04-12] MEDS ORDERED: Dextrose 5% in Water 1,000 ML IV PRN (15:42)
[2023-04-12] MEDS ORDERED: Ipratropium/Albuterol 3 ML NEB NEB PRN (15:42)
[2023-04-12 17:05] VITALS: BMI 27.6
[2023-04-12] MEDS: Sodium Chloride 0.9% 1,000 ML IV SCH (17:18)
[2023-04-12] MEDS: Acetaminophen 325 MG TAB PO SCH ×2 (17:18→21:51)
[2023-04-12 19:07] LABS: Bacteria/HPF None Seen HPF (None Seen); Bilirubin Negative (Negative); Blood, Urine 2+ (Negative); Clarity Clear (Clear); Glucose, Urine (Dipstick) Normal (Negative); Ketone, Urine Negative (Negative); Leukocyte Negative Leu/uL (Negative); Nitrite Negative (Negative); Protein, Urine (Dipstick) Negative (Neg-Trace); Specific Gravity, Urine 1.005 (1.002-1.036); Squamous Epithelial None Seen HPF (0-3); Urobilinogen Normal mg/dL (Less than 2); WBC/HPF 0-3 HPF (0-3); pH, Urine 5.5 (5.0-9.0)
[2023-04-12] MEDS: Famotidine 20 MG TAB PO SCH (19:48)
[2023-04-12] MEDS: Ondansetron ODT 4 MG TAB PO PRN (19:48)
[2023-04-12] MEDS: Morphine 2 MG/ML VIAL SLOW IVP PRN ×2 (19:53→23:56)
[2023-04-12] MEDS ORDERED: Levothyroxine Sodium 125 MCG TAB PO SCH (23:30)
[2023-04-13] MEDS: Sodium Chloride 0.9% 1,000 ML IV SCH ×2 (02:20→07:21)
[2023-04-13] MEDS: Acetaminophen 325 MG TAB PO SCH ×3 (03:34→14:01)
[2023-04-13] MEDS ORDERED: Levothyroxine Sodium 125 MCG TAB PO SCH (06:00)
[2023-04-13] MEDS: Morphine 2 MG/ML VIAL SLOW IVP PRN ×2 (07:20→14:03)
[2023-04-13] MEDS: Ondansetron ODT 4 MG TAB PO PRN ×2 (07:20→14:03)
[2023-04-13 07:59] VITALS: TEMP 98.3
[2023-04-13] MEDS ORDERED: Clindamycin/D5W 900 mg/50 ml Premix Bag ONE (09:51)
[2023-04-13] MEDS ORDERED: EPINEPHrine 1 MG/ML AMP ONE (10:03)
[2023-04-13] MEDS ORDERED: Bupivacaine PF 0.5% 30 ML VIAL ONE (10:03)
[2023-04-13] MEDS ORDERED: Ondansetron PF 4 MG/2 ML Vial ONE ×2 (10:41→10:51)
[2023-04-13] MEDS ORDERED: Lidocaine 1% PF 5 ML VIAL ONE (10:41)
[2023-04-13] MEDS ORDERED: PROPOFOL 200 MG/20 ML VIAL ONE (10:41)
[2023-04-13] MEDS ORDERED: fentaNYL 50 mcg/mL 1 mL Vial ONE ×4 (10:51→12:19)
[2023-04-13] MEDS: Famotidine 20 MG TAB PO SCH (11:40)
[2023-04-13] MEDS ORDERED: Promethazine HCl 25 MG/ML VIAL IM PRN (11:51)
[2023-04-13] MEDS ORDERED: Ondansetron HCl/PF 4 MG/2 ML Vial IVP PRN (11:51)
[2023-04-13] MEDS ORDERED: Meperidine HCl/PF 25 MG/ML VIAL ONE (11:57)
[2023-04-13 14:09] VITALS: BP 139/74
[2023-04-13] MEDS ORDERED: Ketorolac Tromethamine 10 MG TAB PO SCH (18:00)
== END 2023-04-13 17:45 | disposition home or self-care (01) | DRG 512 ==
LOC: ERS 11:48 → SURG B 15:28
PROVIDERS: ADMIT Surgery; ATTEND Surgery
PROC: 0PSH04Z Reposition Right Radius with Internal Fixation Device, Open Approach (ICD-10-PCS; principal; 2023-04-13)
DX: S52.531A Colles' fracture of right radius, initial encounter for closed fracture (principal); W01.0XXA Fall on same level from slipping, tripping and stumbling without subsequent striking against object, initial encounter; E03.9 Hypothyroidism, unspecified; Z98.890 Other specified postprocedural states; Z87.891 Personal history of nicotine dependence
CPT/HCPCS: 80053; 81001; 85025; 93005; C1713; J0171; J2175; J2270; J2272; J2405; J2704; J3010; J3490; J7050; Q0162; S0020